=== PATIENT | male | born 1960 | race Two or more races ===

== ENCOUNTER 2021-06-30 12:25 | Outpatient (CLI) | payer OTHER | END 2021-06-30 23:59 | disposition home or self-care (01) | LOC: LAB 12:25 | PROVIDERS: ATTEND Specialist | DX: Z01.812 Encounter for preprocedural laboratory examination (principal); Z20.822 Contact with and (suspected) exposure to COVID-19 | CPT/HCPCS: C9803; U0003 ==

== ENCOUNTER 2021-10-24 09:14 | Outpatient (CLI) | payer OTHER ==
[2021-10-29] MEDS ORDERED: BISA10SU61 RC (16:06)
[2021-10-29] MEDS ORDERED: HYDR-3980 PO (16:06)
[2021-10-29] MEDS ORDERED: MAG30ORA PO (16:06)
[2021-10-29] MEDS ORDERED: SENN-175 PO (16:06)
[2021-10-29] MEDS ORDERED: CLON0.1T PO (16:06)
[2021-10-29] MEDS ORDERED: Menthol/Cetylpyrd (Cepacol) PO (16:06)
[2021-10-29] MEDS ORDERED: RIVA10TA PO (16:06)
[2021-10-29] MEDS ORDERED: FAMO20TA80 PO (16:06)
[2021-10-29] MEDS ORDERED: DOCU100C36 PO (16:06)
[2021-10-29] MEDS ORDERED: INSU100V28 SQ (16:06)
[2021-10-29] MEDS ORDERED: MAGN400O6 PO (16:06)
[2021-10-29] MEDS ORDERED: DIPH25CA49 PO (16:06)
== END 2021-10-24 23:59 | disposition home or self-care (01) ==
LOC: LAB 09:14
PROVIDERS: ATTEND Specialist
DX: Z01.812 Encounter for preprocedural laboratory examination (principal); Z20.822 Contact with and (suspected) exposure to COVID-19
CPT/HCPCS: U0003; C9803

== ENCOUNTER 2021-10-28 07:09 | Inpatient (IN) | payer OTHER ==
[~2021-10-28] VITALS: Ht 170.2 cm; Wt 65.8 kg
[2021-10-28] MEDS ORDERED: BUPIVACAINE 0.5 % PF 150 MG/30 ML VIAL ONE (07:45)
--- NOTE | 2021-10-28 08:00 | NUR ---
MS RN RECEIVED A NEW ADMISSION FROM ADMITTING, PATIENT IS HERE FOR RIGHT HIP ARTHROPLASTY, AWAKE,ALERT,ORIENTED X4,NOT IN ANY FORM OF DISTRESS, RESPIRATIONS EVEN AND UNLABORED,NO SOB NOTED, LUNGS ARE CLEAR,ABDOMEN SOFT,POSITIVE BOWEL SOUNDS,DENIES PAIN AT THIS TIME,ALL NEEDS ATTENDED.
[2021-10-28 10:59] VITALS: BP 132/74
[2021-10-28] MEDS ORDERED: CLONIDINE HCL 0.1 MG TABLET PO PRN (11:00)
[2021-10-28] MEDS ORDERED: MAGNESIUM HYDROXIDE 30 ML UDC PO PRN (11:00)
[2021-10-28] MEDS ORDERED: MENTHOL/CETYLPYRD (CEPACOL) 1 LOZ LOZENGE PO PRN (11:00)
[2021-10-28] MEDS ORDERED: diphenhydrAMINE HCL 25 MG CAPSULE PO PRN (11:00)
[2021-10-28] MEDS ORDERED: ONDANSETRON HCL/PF 4 MG/2 ML VIAL IV PRN ×2 (11:00→15:00)
--- NOTE | 2021-10-28 11:00 | NUR ---
MS RN PATIENT WENT DOWN FOR THE PROCEDURE,ALL NEEDS ATTENDED.
[2021-10-28] MEDS ORDERED: FAMOTIDINE/PF INJ 20 MG/2 ML VIAL IV ONE (11:38)
[2021-10-28] MEDS ORDERED: FENTANYL PF 250MCG/5ML AMPUL ONE (11:38)
[2021-10-28] MEDS ORDERED: SUCCINYLCHOLINE CHLORIDE 20 MG/ML VIAL ONE (11:38)
[2021-10-28] MEDS ORDERED: ROCURONIUM BROMIDE 50 MG/5 ML ONE (11:48)
[2021-10-28] MEDS ORDERED: TRANEXAMIC ACID 3,000 MG in SODIUM CHLORIDE IRRIG SOLUTION 70 ML IR ONE (12:30)
[2021-10-28] MEDS ORDERED: HYDROMORPHONE 1 MG/1 ML DISP.SYRIN ONE (13:40)
[2021-10-28] MEDS ORDERED: LABETALOL HCL IV 100MG VIAL ONE (13:46)
[2021-10-28] MEDS ORDERED: HYDROMORPHONE INJ 2 MG/ML DISP.SYRIN ONE (14:07)
[2021-10-28] MEDS ORDERED: hydrALAZINE HCL IV 20 MG VIAL ONE (14:07)
[2021-10-28] MEDS ORDERED: ZOLPIDEM TARTRATE 5 MG TABLET PO PRN (15:00)
[2021-10-28] MEDS ORDERED: BISACODYL SUPP (10 MG) 10 MG/SUPP.RECT SUPP.RECT RC PRN (15:00)
[2021-10-28] MEDS ORDERED: SENNOSIDES 8.6 MG TABLET PO PRN (15:00)
--- NOTE | 2021-10-28 15:00 | NUR ---
RN Receiving Report Received report from OR Nurse, Pts VSS, states pain and discomfort. Blood Sugar 147, Dressing is Clean, dry and intact, provided clear liquids, will advance as tolerated. All safety precautions taken, bed at lowest position, call light and table within reach. Will continue to monitor throughout shift.
[2021-10-28] MEDS: IV LR 1000 ML 1,000 ML IV PRN (15:26)
[2021-10-28] MEDS: HYDROCODONE/APAP 10/325MG TABLET PO PRN ×2 (15:27→20:26)
--- NOTE | 2021-10-28 16:00 | NUR ---
ms rn on bed,no distress noted,all needs attended.
[2021-10-28 16:09] VITALS: BP 133/76
[2021-10-28] MEDS: RIVAROXABAN 10 MG TABLET PO SCH (17:00)
[2021-10-28] MEDS ORDERED: DOCUSATE SODIUM 250 MG CAPSULE PO SCH (17:00)
[2021-10-28 17:24] LABS: BASOPHILS % (AUTO) 0.4 % (0.0-2.0); EOSINOPHILS % (AUTO) 0.5 % (0.0-6.0); HEMATOCRIT 33 % (39-51); HEMOGLOBIN 10.8 g/dL (13.5-17.5); LYMPHOCYTES # (AUTO) 0.4 K/uL (0.8-4.8); LYMPHOCYTES % (AUTO) 4.9 % (20.0-44.0); MEAN CORPUSCULAR HGB CONC 33 g/dl (31.0-36.0); MEAN CORPUSCULAR VOLUME 96 fL (80-96); MONOCYTES # (AUTO) 0.5 K/uL (0.1-1.30); NEUTROPHILS # (AUTO) 6.8 K/uL (1.8-8.9); NEUTROPHILS % (AUTO) 87.2 % (43.0-81.0); PLATELET COUNT (AUTO) 214 K/uL (150-450); RED BLOOD CELL COUNT(AUTO) 3.47 MIL/uL (4.5-6.0); WHITE BLOOD COUNT (AUTO) 7.8 K/uL (4.3-11.0)
[2021-10-28 17:52] LABS: CALCIUM, SERUM 7.3 mg/dL (8.5-10.1); CREATININE 3.8 mg/dL (0.6-1.3); POTASSIUM 4.6 mmol/L (3.5-5.1)
[2021-10-28] MEDS: DOCUSATE SODIUM 100 MG CAPSULE PO SCH (18:46)
--- NOTE | 2021-10-28 18:50 | NUR ---
ms rn on bed, no distress noted.
--- NOTE | 2021-10-28 19:29 | NUR ---
RN OPENING NOTE PATIENT IN BED, AWAKE. PATIENT IS /O X 4 ABLE TO MAKE NEEDS KNOWN. PATIENT IS ON 2 LPM AT THIS TIME, TOLERATING WELL, WILL TITRATE PRN. PATIENT IS COMPLAINING OF R HIP PAIN 10/02 WILL MANAGE PAIN APPROPRIATELY. R HIP SX DRESSING CLEAN, DRY AND INTACT. PATIENT HAS A L HAND IV ACCESS WITH LR AT 100 CC/HR ONGOING. SAFETY MEASURES IN PLACE: BED LOCKED AND IN LOWEST POSITION, CALL LIGHT WITHIN REACH, SIDE RAILS UP, BED ALARM ON. WILL MONITOR PATIENT CLOSELY.
--- NOTE | 2021-10-28 19:30 | NUR ---
GALEN PALOMARES GIVEN FOR PAIN 10/02 ON THE R HIP. WILL REASSESS MED EFFECTIVENESS AT A LATER TIME Addendum: 10/29/21 at 0050 by RIN CARRILLO RN WRONG TIME 2030
[2021-10-28 20:00] VITALS: BP 126/66
[2021-10-28] MEDS: FAMOTIDINE (20 MG) 20 MG TABLET PO SCH (20:26)
[2021-10-28] MEDS ORDERED: DEXTROSE 50%-WATER 50 ML DISP.SYRIN IV PRN (21:00)
[2021-10-28] MEDS: BLOOD SUGAR DIAGNOSTIC 1 EACH STRIP IN SCH (21:21)
[2021-10-28] MEDS: INSULIN REGULAR, HUMAN 100 UNIT/ML 3 ML VIAL SQ PRN (21:25)
--- NOTE | 2021-10-28 21:30 | NUR ---
RN NOTE MD ORDERED ACCUCHECK AND MILD SS FOR PATIENT. PATIENT'S BS 218 MG/DL, 4 UNITS COVERAGE GIVEN. PATIENT GIVEN SNACKS AND JUICE. WILL MONITOR PATIENT FOR HYPO/HYPERGLYCEMIA.
[2021-10-29] MEDS: IV LR 1000 ML 1,000 ML IV PRN ×2 (01:12→18:00)
--- NOTE | 2021-10-29 01:23 | NUR ---
ms rn was seen by Maria Eugenia vitale, was reminded to do med recon.
[2021-10-29] MEDS: HYDROCODONE/APAP 10/325MG TABLET PO PRN ×4 (01:25→20:10)
--- NOTE | 2021-10-29 01:25 | NUR ---
RN NOTE PATIENT GIVEN NORCO 10-325 FOR PAIN ON THE R HIP. ICE PACK APPLIED WELL.
--- NOTE | 2021-10-29 01:30 | NUR ---
RN NOTE ASKED PATIENT IF HE HAS URINATED SINCE HIS PROCEDURE, HE STATES HE HAS NOT AND THE LAST TIME WAS RIGHT BEFORE THE PROCEDURE. PATIENT REFUSING BLADDER SCAN AT THIS TIME AND STATES TO GIVE HIM TIME AND HE WILL TRY TO URINATE.
--- NOTE | 2021-10-29 03:30 | NUR ---
RN NOTE PATIENT STILL HAS NOT URINATED. PT AGREED TO HAVE BLADDER SCAN DONE.
--- NOTE | 2021-10-29 04:00 | NUR ---
BLADDER SCAN SHOWED 728 ML VOLUME. MD ORDERED TO HAVE LEES CATH INSERTED.
--- NOTE | 2021-10-29 04:18 | NUR ---
LEES CATH 16FR ISERTED FOR URINARY RETENTION.
[2021-10-29] MEDS: BLOOD SUGAR DIAGNOSTIC 1 EACH STRIP IN SCH ×4 (06:32→22:28)
--- NOTE | 2021-10-29 06:56 | NUR ---
RN CLOSING NOTE PATIENT IN BED, EYES CLOSED. PATIENT IS /O X 4 ABLE TO MAKE NEEDS KNOWN. PATIENT IS NOW ON RA, TOLERATING WELL. PAIN MANAGED WITH NORCO 10-325. R HIP SX DRESSING CLEAN, DRY AND INTACT. PATIENT HAS A L HAND IV ACCESS WITH LR AT 100 CC/HR ONGOING. SAFETY MEASURES IN PLACE: BED LOCKED AND IN LOWEST POSITION, CALL LIGHT WITHIN REACH, SIDE RAILS UP, BED ALARM ON. ALL NEEDS MET AND ATTENDED. ALL ORDERS CARRIED OUT. WILL ENDORSE TO DAY SHIFT NURSE FOR VERNELL.
--- NOTE | 2021-10-29 07:15 | NUR ---
ms rn received on bed,awake,alert,oriented x4,s/p right hip surgery,sx site w/ dressing dry and intact,denies pain at this time,all needs attended.
[2021-10-29] MEDS: DOCUSATE SODIUM 100 MG CAPSULE PO SCH ×2 (08:54→16:56)
--- NOTE | 2021-10-29 09:30 | NUR ---
ms teresa breakfast served,due meds given,tolerated well.
[2021-10-29] MEDS: HYDROMORPHONE 1 MG/1 ML DISP.SYRIN IM/IV/SC PRN ×3 (11:40→22:23)
--- NOTE | 2021-10-29 11:45 | NUR ---
ms rn was seen by pt, get up for a little bit.
[2021-10-29 12:39] LABS: ALBUMIN 3.4 g/dL (3.4-5.0); BILIRUBIN,TOTAL 0.5 mg/dL (0.2-1.0); CALCIUM, SERUM 7.1 mg/dL (8.5-10.1); CREATININE 3.6 mg/dL (0.6-1.3); MAGNESIUM 2.3 mg/dL (1.8-2.4); PHOSPHORUS 4.2 mg/dL (2.5-4.9); POTASSIUM 5.4 mmol/L (3.5-5.1); TOTAL PROTEIN, SERUM 6.7 g/dL (6.4-8.2)
[2021-10-29] MEDS ORDERED: CYAN-51 PO (13:06)
[2021-10-29] MEDS ORDERED: GABA-532 PO (13:06)
[2021-10-29] MEDS ORDERED: HYDR-4077 PO (13:06)
[2021-10-29] MEDS ORDERED: FURO-145 PO (13:06)
[2021-10-29] MEDS ORDERED: ATOR20TA PO (13:06)
[2021-10-29] MEDS ORDERED: CALC0.253 PO (13:06)
[2021-10-29] MEDS ORDERED: AMLO-212 PO (13:06)
[2021-10-29] MEDS ORDERED: METO50TA16 PO (13:06)
[2021-10-29] MEDS ORDERED: TERA2CAP4 PO (13:06)
[2021-10-29 13:09] LABS: THYROID STIMULATING HORMONE 1.053 uIU/mL (0.358-3.74)
[2021-10-29 13:28] LABS: BASOPHILS # (AUTO) 0.1 K/uL (0.0-0.2); BASOPHILS % (AUTO) 0.5 % (0.0-2.0); EOSINOPHILS % (AUTO) 0.4 % (0.0-6.0); HEMATOCRIT 33 % (39-51); HEMOGLOBIN 10.6 g/dL (13.5-17.5); LYMPHOCYTES # (AUTO) 0.9 K/uL (0.8-4.8); LYMPHOCYTES % (AUTO) 9.5 % (20.0-44.0); MEAN CORPUSCULAR HGB CONC 33 g/dl (31.0-36.0); MEAN CORPUSCULAR VOLUME 97 fL (80-96); MONOCYTES # (AUTO) 0.6 K/uL (0.1-1.30); MONOCYTES % (AUTO) 6.5 % (2.0-12.0); NEUTROPHILS # (AUTO) 8.3 K/uL (1.8-8.9); NEUTROPHILS % (AUTO) 83.1 % (43.0-81.0); PLATELET COUNT (AUTO) 151 K/uL (150-450); RED BLOOD CELL COUNT(AUTO) 3.35 MIL/uL (4.5-6.0); WHITE BLOOD COUNT (AUTO) 9.9 K/uL (4.3-11.0)
--- NOTE | 2021-10-29 15:30 | NUR ---
ms rn texted briseida again to do med recon,was told that patient will be discharge,.
[2021-10-29] MEDS ORDERED: Menthol/Cetylpyrd (Cepacol) PO (16:06)
[2021-10-29] MEDS ORDERED: SENN-175 PO (16:06)
[2021-10-29] MEDS ORDERED: HYDR-3980 PO (16:06)
[2021-10-29] MEDS ORDERED: MAGN400O6 PO (16:06)
[2021-10-29] MEDS ORDERED: MAG30ORA PO (16:06)
[2021-10-29] MEDS ORDERED: FAMO20TA80 PO (16:06)
[2021-10-29] MEDS ORDERED: BISA10SU61 RC (16:06)
[2021-10-29] MEDS ORDERED: DOCU100C36 PO (16:06)
[2021-10-29] MEDS ORDERED: CLON0.1T PO (16:06)
[2021-10-29] MEDS ORDERED: DIPH25CA49 PO (16:06)
[2021-10-29] MEDS ORDERED: RIVA10TA PO (16:06)
[2021-10-29] MEDS ORDERED: INSU100V28 SQ (16:06)
[2021-10-29] MEDS: RIVAROXABAN 10 MG TABLET PO SCH (16:57)
--- NOTE | 2021-10-29 18:00 | NUR ---
ms rn on bed, no distress noted ,all needs attended,pt is fress of pain.
--- NOTE | 2021-10-29 19:30 | NUR ---
MS RN OPENING NOTE RECEIVED PATIENT IN BED, A/OX4, NO S/S OF APPARENT DISTRESS,C/O 10/02 PAIN-- WILL MEDICATE. R. HIP DRESSING NOTED TO BE CLEAN, DRY, AND INTACT WITH ABDUCTION PILLOW IN PLACE. LEES CATHETER NOTED IN PLACE DRAINING CLEAR, YELLOW URINE. IV LR RUNNING @00MLS/HR. SAFETY IN PLACE. WILL CONTINUE WITH PLAN OF CARE FOR PATIENT.
[2021-10-29 20:00] VITALS: BP 168/88
[2021-10-29 20:40] VITALS: BP 148/86
--- NOTE | 2021-10-29 20:41 | NUR ---
MS RN NOTE- BP RECHECK 148/86 HR- 93 WILL CONTINUE TO MONITOR.
[2021-10-29] MEDS: FAMOTIDINE (20 MG) 20 MG TABLET PO SCH (21:48)
[2021-10-29] MEDS: INSULIN REGULAR, HUMAN 100 UNIT/ML 3 ML VIAL SQ PRN (22:35)
[2021-10-30] MEDS: MAG HYDROX/AL HYDROX/SIMETH 30 ML UDC PO PRN (01:59)
--- NOTE | 2021-10-30 02:10 | NUR ---
MS RN NOTE PATIENT ABDOMEN NOTED TO BE DISTENDED AND HARD, AND HAVING A LOT OF GAS.. GIVEN MAALOX ORDERED. WILL CONTINUE TO MONITOR.
--- NOTE | 2021-10-30 03:27 | NUR ---
MS RN NOTE PATIENT HAVE 1 LARGE BM, STOMACH DISTENTION RELIEVED. SOFT TO TOUCH WHEN PALPATED.
--- NOTE | 2021-10-30 03:28 | NUR ---
MRSA SWAB OBTAINED AT THIS TIME.
[2021-10-30] MEDS: HYDROMORPHONE 1 MG/1 ML DISP.SYRIN IM/IV/SC PRN ×3 (03:35→18:46)
[2021-10-30 06:32] LABS: BASOPHILS % (AUTO) 0.2 % (0.0-2.0); EOSINOPHILS % (AUTO) 0.7 % (0.0-6.0); HEMATOCRIT 32 % (39-51); HEMOGLOBIN 10.6 g/dL (13.5-17.5); LYMPHOCYTES # (AUTO) 0.6 K/uL (0.8-4.8); LYMPHOCYTES % (AUTO) 6.1 % (20.0-44.0); MEAN CORPUSCULAR HGB CONC 33 g/dl (31.0-36.0); MEAN CORPUSCULAR VOLUME 95 fL (80-96); MONOCYTES # (AUTO) 0.7 K/uL (0.1-1.30); MONOCYTES % (AUTO) 7.8 % (2.0-12.0); NEUTROPHILS % (AUTO) 85.2 % (43.0-81.0); PLATELET COUNT (AUTO) 180 K/uL (150-450); RED BLOOD CELL COUNT(AUTO) 3.37 MIL/uL (4.5-6.0); WHITE BLOOD COUNT (AUTO) 9.4 K/uL (4.3-11.0)
[2021-10-30] MEDS: INSULIN REGULAR, HUMAN 100 UNIT/ML 3 ML VIAL SQ PRN ×4 (07:01→22:08)
[2021-10-30] MEDS: BLOOD SUGAR DIAGNOSTIC 1 EACH STRIP IN SCH ×4 (07:01→21:55)
[2021-10-30 07:08] LABS: CREATININE 3.6 mg/dL (0.6-1.3); MAGNESIUM 2.2 mg/dL (1.8-2.4); PHOSPHORUS 3.8 mg/dL (2.5-4.9); POTASSIUM 5.3 mmol/L (3.5-5.1)
--- NOTE | 2021-10-30 07:26 | NUR ---
MS RN CLOSING NOTE NEEDS ATTENDED. REPORT GIVEN TO ERI FOR CONTINUITY OF CARE.
--- NOTE | 2021-10-30 07:29 | NUR ---
MS RN OPENING NOTE RECEIVED PT AWAKE IN BED. A/O X4, ABLE TO MAKE NEEDS KNOWN. ON RA, TOLERATING WELL. NO SOB NOTED. NOT IN ANY SIGN OF RESPIRATORY DISTRESS. IV ACCESS IN L HAND G #20 INTACT AND PATENT. SAFETY MEASURES IN PLACE: BED IN LOWEST AND LOCKED POSITION, SIDE RAILS UPX2, CALL LIGHT WITHIN REACH. WILL CONTINUE TO MONITOR PT.
[2021-10-30] MEDS: DOCUSATE SODIUM 100 MG CAPSULE PO SCH ×2 (08:34→17:20)
--- NOTE | 2021-10-30 10:20 | NUR ---
RN NOTE PT C/O RIGHT HIP PAIN WITH PAIN SCALE LEVEL OF 8/10. DILAUDID 0.5MG IVP ADMINISTERED ORDERED PRN. WASTE WAS WITNESSED BY GALEN GODOY. WILL CONTINUE TO MONITOR AND REASSESSED PT.
[2021-10-30] MEDS ORDERED: TAMSULOSIN 0.4 MG CAP.SR.24H PO ONE (10:40)
[2021-10-30] MEDS ORDERED: BETHANECHOL CHLORIDE (25 MG) 25 MG TABLET PO ONE (11:00)
[2021-10-30] MEDS: RIVAROXABAN 10 MG TABLET PO SCH (17:20)
--- NOTE | 2021-10-30 18:48 | NUR ---
RN NOTE PT C/O RIGHT HIP PAIN WITH PAIN SCALE LEVEL OF 8/10. DILAUDID 0.5MG IVP ADMINISTERED ORDERED PRN. WASTE WAS WITNESSED BY GALEN ENG. WILL CONTINUE TO MONITOR AND REASSESSED PT.
--- NOTE | 2021-10-30 19:27 | NUR ---
MS RN CLOSING NOTE PT AWAKE IN BED. A/O X4, ABLE TO MAKE NEEDS KNOWN. ON RA, TOLERATING WELL. NO SOB NOTED. NOT IN ANY SIGN OF RESPIRATORY DISTRESS. IV ACCESS IN L HAND G #20 INTACT AND PATENT. ALL NEEDS ATTENDED. KEPT CLEAN AND COMFORTABLE. SAFETY MEASURES IN PLACE: BED IN LOWEST AND LOCKED POSITION, SIDE RAILS UPX2, CALL LIGHT WITHIN REACH. ENDORSED TO SUPERVISOR RIPRAP PLACING NURSE FOR VERNELL.
--- NOTE | 2021-10-30 19:30 | NUR ---
MS RN OPENING NOTE RECEIVED PATIENT IN BED, A/OX3, NO S/S OF APPARENT DISTRESS, PAIN OF 10/02-- RENEWED ICE CHIPS FOR NOW, WILL MEDICATE. R. HIP DRESSING NOTED TO BE CLEAN, DRY, AND INTACT WITH ABDUCTION PILLOW IN PLACE. NO IV FLUIDS RUNNING AT THIS TIME, NO MORE LEES CATHETER IN PLACE. SAFETY IN PLACE. RE-ORIENTED AND ENCOURAGED WITH THE USE OF CALL LIGHT WILL CONTINUE WITH PLAN OF CARE FOR PATIENT.
[2021-10-30] MEDS: HYDROCODONE/APAP 10/325MG TABLET PO PRN (19:56)
[2021-10-30 20:00] VITALS: BP_SYST 148; BP_SYST 151; BP_DIAS 86; BP_DIAS 91
[2021-10-30] MEDS: FAMOTIDINE (20 MG) 20 MG TABLET PO SCH (21:48)
[2021-10-31] MEDS: HYDROMORPHONE 1 MG/1 ML DISP.SYRIN IM/IV/SC PRN ×7 (00:21→23:47)
[2021-10-31] MEDS: BLOOD SUGAR DIAGNOSTIC 1 EACH STRIP IN SCH ×4 (06:44→22:44)
[2021-10-31] MEDS: INSULIN REGULAR, HUMAN 100 UNIT/ML 3 ML VIAL SQ PRN (06:45)
--- NOTE | 2021-10-31 07:30 | NUR ---
MS RN OPENING NOTE RECEIVED PATIENT IN BED, A/OX3, NO S/S OF SOB AND ACUTE DISTRESS AT THE MOMENT, ON RA TOLERATING WELL. C/O PAIN OF 7/10 WILL GIVE PRN PAIN MED PER ORDER. R. HIP DRESSING NOTED, CLEAN, DRY, AND INTACT WITH ABDUCTION PILLOW IN PLACE. IV ACCESS L HAND #20, PATENT, SL, NO FLUIDS RUNNING AT THIS TIME. SAFETY IN PLACE: HOB ELEVATED, LOCKED AT LOWEST POSITION, URINAL, CALL LIGHT AND TABLE WITHIN REACH, WILL CONT TO MONITOR.
--- NOTE | 2021-10-31 07:32 | NUR ---
MS RN NOTE CLOSING NEEDS ATTENDED. ENDORSED TO GALEN EVERETT FOR CONTINUITY OF CARE.
[2021-10-31] MEDS: TAMSULOSIN 0.4 MG CAP.SR.24H PO SCH (08:20)
[2021-10-31] MEDS: DOCUSATE SODIUM 100 MG CAPSULE PO SCH ×2 (08:22→17:00)
[2021-10-31 08:25] VITALS: BP 173/89
[2021-10-31] MEDS: RIVAROXABAN 10 MG TABLET PO SCH (17:07)
[2021-10-31] MEDS ORDERED: ACETAMINOPHEN ES 500 MG TABLET PO PRN (19:30)
--- NOTE | 2021-10-31 19:45 | NUR ---
MS/RN OPENING NOTE RECEIVED PATIENT RESTING IN BED. AWAKE, ALERT AND ORIENTED X 3. ABLE TO MAKE NEEDS KNOWN. DENIES PAIN AT THIS TIME. CONTINUES ON ROOM AIR WITH NO S/SX OF RESPIRATORY DISTRESS NOTED. IV ACCESS TO LEFT HAND #22G INTACT, PATENT AND SALINE LOCKED. DRESSING TO RIGHT HIP SURGICAL INCISION C/D/I. ABDUCTOR PILLOW IN PLACE. WBAT TO RLE. CONTINUES ON CCHO PUREED DIET WITH NO S/SX OF ASPIRATION NOTED. CALL LIGHT WITHIN REACH. ASPIRATION, FALL AND SAFETY PRECAUTIONS MAINTAINED. ALL NEEDS ATTENDED TO AT THIS TIME.
--- NOTE | 2021-10-31 19:49 | NUR ---
MS RN OPENING NOTE RECEIVED PATIENT IN BED, A/OX3, NO S/S OF SOB AND ACUTE DISTRESS AT THE MOMENT, ON RA TOLERATING WELL. R. HIP DRESSING NOTED, CLEAN, DRY, AND INTACT WITH ABDUCTION PILLOW IN PLACE. IV ACCESS L HAND #20, PATENT, SL, NO FLUIDS RUNNING AT THIS TIME, DUE MEDS GIVEN; SAFETY IN PLACE: HOB ELEVATED, LOCKED AT LOWEST POSITION, URINAL, CALL LIGHT AND TABLE WITHIN REACH, ENDORSED TO PM SHIFT. Addendum: 10/31/21 at 1951 by MARGUERITE CERDA RN RN CLOSING NOTES:
[2021-10-31 20:00] VITALS: BP 189/82
[2021-10-31] MEDS ORDERED: ACETAMINOPHEN 325 MG TABLET PO PRN (20:00)
[2021-10-31] MEDS: FAMOTIDINE (20 MG) 20 MG TABLET PO SCH (20:15)
[2021-10-31] MEDS ORDERED: SODIUM POLYSTYRENE SULF. PWD 15 GM UDC PO ONE (21:30)
[2021-10-31] MEDS: CLONIDINE HCL 0.1 MG TABLET PO SCH (22:44)
[2021-10-31] MEDS ORDERED: SODIUM POLYSTYRENE SULFONATE 15 G/60 ML BOTTLE ONE (23:06)
[2021-11-01] MEDS: HYDROMORPHONE 1 MG/1 ML DISP.SYRIN IM/IV/SC PRN ×4 (03:05→22:24)
[2021-11-01] MEDS: CLONIDINE HCL 0.1 MG TABLET PO SCH ×3 (05:09→21:40)
--- NOTE | 2021-11-01 06:10 | NUR ---
MS/RN CLOSING NOTE PATIENT CURRENTLY SLEEPING IN BED. ALERT AND ORIENTED X 3. ABLE TO MAKE NEEDS KNOWN. DENIES PAIN AT THIS TIME. CONTINUES ON ROOM AIR WITH NO S/SX OF RESPIRATORY DISTRESS NOTED. IV ACCESS TO LEFT HAND #22G INTACT, PATENT AND SALINE LOCKED. DRESSING TO RIGHT HIP SURGICAL INCISION C/D/I. ABDUCTOR PILLOW IN PLACE. WBAT TO RLE. CONTINUES ON CCHO PUREED DIET WITH NO S/SX OF ASPIRATION NOTED. CALL LIGHT WITHIN REACH. ASPIRATION, FALL AND SAFETY PRECAUTIONS MAINTAINED. WILL ENDORSE PLAN OF CARE TO ONCOMING SHIFT RN.
[2021-11-01] MEDS: BLOOD SUGAR DIAGNOSTIC 1 EACH STRIP IN SCH ×4 (06:26→22:23)
--- NOTE | 2021-11-01 07:30 | NUR ---
MS/RN OPENING NOTE RECEIVED PATIENT RESTING IN BED. AWAKE, ALERT AND ORIENTED X 3. ABLE TO MAKE NEEDS KNOWN. DENIES PAIN AT THIS TIME. CONTINUES ON ROOM AIR WITH NO S/SX OF RESPIRATORY DISTRESS NOTED. IV ACCESS LEFT HAND #22G INTACT, PATENT AND SALINE LOCKED. DRESSING TO RIGHT HIP SURGICAL INCISION C/D/I. ABDUCTOR PILLOW IN PLACE. CONTINUES ON CCHO PUREED DIET WITH NO S/SX OF ASPIRATION NOTED. CALL LIGHT, TABLE AND URINAL WITHIN REACH. ASPIRATION, FALL AND SAFETY PRECAUTIONS MAINTAINED..
[2021-11-01 08:00] VITALS: BP 149/79
[2021-11-01] MEDS: DOCUSATE SODIUM 100 MG CAPSULE PO SCH ×2 (09:00→17:00)
[2021-11-01] MEDS: TAMSULOSIN 0.4 MG CAP.SR.24H PO SCH (10:43)
[2021-11-01] MEDS: FAMOTIDINE (20 MG) 20 MG TABLET PO SCH (10:43)
[2021-11-01] MEDS: INSULIN REGULAR, HUMAN 100 UNIT/ML 3 ML VIAL SQ PRN (12:21)
[2021-11-01 16:27] LABS: CREATININE, URINE 66.4 MG/DL (30.0-125.0)
[2021-11-01 16:31] LABS: BILIRUBIN,URINE NEGATIVE (NEGATIVE); COLOR,URINE YELLOW (YELLOW); LEUKOCYTE ESTERASE ,URINE NEGATIVE (NEGATIVE); NITRITE, URINE NEGATIVE (NEGATIVE); PROTEIN,URINE >=300 mg/dl (NEGATIVE); UGLUCOSE NEGATIVE (NEGATIVE); UROBILINOGEN,URINE 0.2 EU/dL (0.2)
[2021-11-01 16:57] LABS: BACTERIA,URINE Few /HPF (None Seen); SQUAMOUS EPITHELIAL CELL,UR Few /HPF (None Seen); WBC,URINE 0-2 /HPF (0-3)
[2021-11-01] MEDS: RIVAROXABAN 10 MG TABLET PO SCH (18:12)
--- NOTE | 2021-11-01 19:25 | NUR ---
MS RN OPENING NOTE RECEIVED PATIENT RESTING IN BED; AWAKE, ALERT AND ORIENTED X3. BREATHING EVENLY AND UNLABORED. ON ROOM AIR; TOLERATING WELL. NOT IN ANY FORM OF RESPIRATORY DISTRESS. WITH IV ACCESS OF LEFT HAND G#20; PATENT, INTACT AND SALINE LOCKED. WITH DRESSING ON RIGHT HIP SURGICAL INCISION; C/D/I. ABDUCTOR PILLOW IN PLACE. NEEDS ANTICIPATED AND ATTENDED TO. SAFETY MEASURES IMPLEMENTED: CALL LIGHT AND TABLE WITHIN REACH, SIDE RAILS UP X2, BED IN LOWEST LOCKED POSITION. WILL CONTINUE TO MONITOR
--- NOTE | 2021-11-01 19:44 | NUR ---
MS RN CLOSING NOTES: PATIENT RESTING IN BED. AWAKE, ALERT AND ORIENTED X 3. ABLE TO MAKE NEEDS KNOWN. DENIES PAIN AT THIS TIME. CONTINUES ON ROOM AIR WITH NO S/SX OF RESPIRATORY DISTRESS NOTED. IV ACCESS LEFT HAND #22G INTACT, PATENT AND SALINE LOCKED. DRESSING TO RIGHT HIP SURGICAL INCISION C/D/I. ABDUCTOR PILLOW IN PLACE. CONTINUES ON CCHO PUREED DIET WITH NO S/SX OF ASPIRATION NOTED. CALL LIGHT, TABLE AND URINAL WITHIN REACH. ASPIRATION, FALL AND SAFETY PRECAUTIONS MAINTAINED, ENDORSED TO PM SHIFT.
[2021-11-01 20:00] VITALS: BP 151/79
[2021-11-01 20:08] VITALS: BP 151/71
--- NOTE | 2021-11-01 22:24 | NUR ---
RN NOTE PATIENT C/O RIGHT GROIN PAIN 11/02; PRN HYDROMORPHONE 0.5 ML GIVEN IVP ORDERED; WILL CONTINUE TO MONITOR AND REASSESS PT.
[2021-11-02] MEDS: HYDROMORPHONE 1 MG/1 ML DISP.SYRIN IM/IV/SC PRN ×5 (02:22→18:24)
--- NOTE | 2021-11-02 02:22 | NUR ---
RN NOTE PATIENT C/O RIGHT GROIN PAIN 11/02; PRN HYDROMORPHONE 0.5 ML GIVEN IVP ORDERED; WILL CONTINUE TO MONITOR AND REASSESS PT.
[2021-11-02] MEDS: MAG HYDROX/AL HYDROX/SIMETH 30 ML UDC PO PRN (04:21)
[2021-11-02] MEDS: CLONIDINE HCL 0.1 MG TABLET PO SCH ×3 (04:33→20:52)
[2021-11-02] MEDS: BLOOD SUGAR DIAGNOSTIC 1 EACH STRIP IN SCH ×4 (05:49→21:43)
--- NOTE | 2021-11-02 06:59 | NUR ---
MS RN CLOSING NOTE PATIENT REMAINS IN BED AWAKE. A/O X3. ABLE TO MAKE NEEDS KNOWN. STABLE ON ROOM AIR. NO S/S OF RESPIRATORY DISTRESS. IV SITE ON LEFT HAND G#20; PATENT, INTACT AND SALINE LOCKED. SAFETY MEASURES MAINTAINED: CALL LIGHT AND TABLE WITHIN EASY REACH, SIDE RAILS UP X2, BED IN LOWEST LOCKED POSITION. ENDORSED TO MORNING SHIFT FOR VERNELL.
--- NOTE | 2021-11-02 07:15 | NUR ---
RN OPENING NOTES RECEIVED PATIENT IN BED AWAKE. A/O X3. VERBALLY RESPONSIVE AND ABLE TO MAKE NEEDS KNOWN. STABLE ON ROOM AIR. NO S/SX OF RESPIRATORY DISTRESS. NOTED WITH IV ACCESS ON LEFT HAND G#20, PATENT, INTACT AND SALINE LOCKED. SAFETY MEASURES IN PLACEM, BED IN LOWEST LOCKED POSITION, CALL LIGHT AND TABLE WITHIN EASY REACH, SIDE RAILS UP X2. WILL CONTINUE TO MONITOR PATIENT.
[2021-11-02 08:14] VITALS: BP 180/66
[2021-11-02] MEDS: TAMSULOSIN 0.4 MG CAP.SR.24H PO SCH (08:49)
[2021-11-02] MEDS: DOCUSATE SODIUM 100 MG CAPSULE PO SCH ×3 (08:51→16:09)
[2021-11-02] MEDS: INSULIN REGULAR, HUMAN 100 UNIT/ML 3 ML VIAL SQ PRN ×2 (11:28→17:09)
[2021-11-02 16:04] VITALS: BP 146/89
[2021-11-02] MEDS: RIVAROXABAN 10 MG TABLET PO SCH (16:10)
[2021-11-02] MEDS: HYDROCODONE/APAP 10/325MG TABLET PO PRN ×2 (17:46→21:38)
--- NOTE | 2021-11-02 18:55 | NUR ---
RN CLOSING NOTES PATIENT IN BED AWAKE. A/O X3. VERBALLY RESPONSIVE AND ABLE TO MAKE NEEDS KNOWN. WITH IV ACCESS ON LEFT HAND G#20, PATENT, INTACT AND SALINE LOCKED. ALL DUE MEDS GIVEN, TOLERATED WELL. PAIN MEDS GIVEN NEEDED. SAFETY MEASURES IN PLACE, BED IN LOWEST LOCKED POSITION, CALL LIGHT AND TABLE WITHIN EASY REACH, SIDE RAILS UP X2. WILL ENDORSE TO NEXT SHIFT FOR CONTINUITY OF CARE.
--- NOTE | 2021-11-02 19:21 | NUR ---
MS RN OPENING NOTE RECEIVED PATIENT AWAKE IN BED. A/O X3 AND ABLE TO MAKE NEEDS KNOWN. PT STABLE ON ROOM AIR. NO SOB OR S/S OF RESPIRATORY DISTRESS. IV ACCESS LEFT HAND G#20 SL, INTACT AND PATENT. SAFETY PRECAUTIONS IN PLACE. BED IN LOWEST LOCKED POSITION, HOB ELEVATED, SIDE RAILS UP X2, AND CALL LIGHT AND TABLE WITHIN REACH. ALL NEEDS MET AT THIS TIME.
[2021-11-02 20:00] VITALS: BP 168/89
[2021-11-02] MEDS: FAMOTIDINE (20 MG) 20 MG TABLET PO SCH (20:51)
--- NOTE | 2021-11-02 21:38 | NUR ---
RN NOTE PT COMPLAINED OF PAIN 10/02 OF R HIP. ADMINISTERED NORCO 10-325 MG FOR MODERATE PAIN ORDERED. MADE COMFORTABLE IN BED. ALL NEEDS MET AT THIS TIME.
[2021-11-02 23:40] LABS: BASOPHILS % (AUTO) 0.3 % (0.0-2.0); EOSINOPHILS % (AUTO) 1.1 % (0.0-6.0); HEMATOCRIT 30 % (39-51); LYMPHOCYTES # (AUTO) 0.4 K/uL (0.8-4.8); LYMPHOCYTES % (AUTO) 6.4 % (20.0-44.0); MEAN CORPUSCULAR HGB CONC 34 g/dl (31.0-36.0); MEAN CORPUSCULAR VOLUME 92 fL (80-96); MONOCYTES # (AUTO) 0.9 K/uL (0.1-1.30); MONOCYTES % (AUTO) 12.3 % (2.0-12.0); NEUTROPHILS # (AUTO) 5.6 K/uL (1.8-8.9); NEUTROPHILS % (AUTO) 79.9 % (43.0-81.0); PLATELET COUNT (AUTO) 153 K/uL (150-450); RED BLOOD CELL COUNT(AUTO) 3.22 MIL/uL (4.5-6.0)
[2021-11-02 23:49] LABS: CALCIUM, SERUM 6.9 mg/dL (8.5-10.1); CREATININE 3.4 mg/dL (0.6-1.3); POTASSIUM 4.8 mmol/L (3.5-5.1)
[2021-11-03] MEDS: HYDROCODONE/APAP 10/325MG TABLET PO PRN ×4 (01:20→20:40)
[2021-11-03] MEDS: CLONIDINE HCL 0.1 MG TABLET PO SCH ×3 (04:48→20:41)
[2021-11-03] MEDS: BLOOD SUGAR DIAGNOSTIC 1 EACH STRIP IN SCH ×3 (06:34→17:35)
--- NOTE | 2021-11-03 06:35 | NUR ---
MS RN CLOSING NOTE PATIENT AWAKE IN BED. A/O X3 AND ABLE TO MAKE NEEDS KNOWN. PT STABLE ON ROOM AIR. NO SOB OR S/S OF RESPIRATORY DISTRESS. IV ACCESS LEFT HAND G#20 SL, INTACT AND PATENT. ALL DUE MEDS GIVEN ORDERED. TURNED AND REPOSITIONED Q2H. SAFETY PRECAUTIONS IN PLACE AT ALL TIMES. BED IN LOWEST LOCKED POSITION, HOB ELEVATED, SIDE RAILS UP X2, AND CALL LIGHT AND TABLE WITHIN REACH. ALL NEEDS MET AT THIS TIME AND WILL ENDORSE TO ONCOMING NURSE FOR VERNELL.
--- NOTE | 2021-11-03 07:30 | NUR ---
MS RN OPENING NOTE PATIENT AWAKE,ALERT AND ORIENTED X4. PATIENT IS ABLE TO MAKE NEEDS KNOWN. PATIENT IS ON ROOM AIR TOLERATING WELL. PATIENT HAS IV ACCESS ON LEFT HAND 20 GUAGE. INTACT AND PATENT.ALL SAFETY MEASURES IN PLACE. BED IN LOWEST POSITION AND LOCKED. HEAD OF BED IS ELEVATED. SIDE RAILS UP X2, CALL LIGHT WITHIN REACH. WILL CONTINUE TO ASSESS THROUGHOUT SHIFT
[2021-11-03 08:00] VITALS: BP_SYST 129; BP_SYST 138; BP_DIAS 66; BP_DIAS 73
[2021-11-03] MEDS: HYDROMORPHONE 1 MG/1 ML DISP.SYRIN IM/IV/SC PRN ×3 (09:05→15:34)
[2021-11-03] MEDS: TAMSULOSIN 0.4 MG CAP.SR.24H PO SCH (09:07)
[2021-11-03] MEDS: DOCUSATE SODIUM 100 MG CAPSULE PO SCH ×2 (09:07→17:25)
--- NOTE | 2021-11-03 09:33 | NUR ---
ms rn note patient complaining of pain 8 on pain scale 0-10. administered Dilaudid. will reassess
--- NOTE | 2021-11-03 11:30 | NUR ---
ms rn note made rounds with md, and suggested to give pain medication. gave dilaudid to pain on 8 from a scale of 0-10
[2021-11-03 16:00] VITALS: BP 138/78
--- NOTE | 2021-11-03 16:30 | NUR ---
ms rn note changed surgical dressing site due to leaking. no signs of infection
[2021-11-03] MEDS: RIVAROXABAN 10 MG TABLET PO SCH (17:26)
--- NOTE | 2021-11-03 19:00 | NUR ---
ms rn note patient was scheduled for discharge, spoke with home health care case manager said workers compensation arranged whole discharge. that transportation will keep him up between 5-6 pm. called transportation and did not hand picker. endorsed to methods examiner nurse to followup
--- NOTE | 2021-11-03 19:30 | NUR ---
ms closing note patient is alert and oriented x4. patient is able to make needs known. patient uses urinal. patient has iv Gauge on left hand. iv intact, patent and flushing well.patient has right surgical incision site. kept clean and dry.all safety measures in place. side rails up x2, call light within, bed locked in lowest position.endorsed to manufacturing supervisor 2nd shift rn
--- NOTE | 2021-11-03 19:55 | NUR ---
MS RN OPENING NOTE RECEIVED PATIENT AWAKE,ALERT AND ORIENTED X4. PATIENT IS ABLE TO MAKE NEEDS KNOWN. PATIENT IS ON ROOM AIR TOLERATING WELL. PATIENT HAS IV ACCESS ON LEFT HAND 20 GUAGE. INTACT AND PATENT.ALL SAFETY MEASURES IN PLACE. BED IN LOWEST POSITION AND LOCKED. HEAD OF BED IS ELEVATED. SIDE RAILS UP X2, CALL LIGHT WITHIN REACH. WILL CONTINUE TO MONITOR.
[2021-11-03 20:41] VITALS: BP 174/81
[2021-11-03] MEDS: FAMOTIDINE (20 MG) 20 MG TABLET PO SCH (20:47)
--- NOTE | 2021-11-03 21:40 | NUR ---
RN NOTES; PT WAS PICKED UP BY AMBULANCE.[id number] ABLE TO VERBALIZE NEEDS.2109=PT WAS COMPLAINED OF PAIN RIGHT HIP 9/10.AND B/P 174/81.PRN NORCO 10/325MG AND CLINIDINE WAS GIVEN.NO SIGN A/R NOTED.IV ACCESS REMOVED AND NAME BAND.SKIN INTACT EXCEPT THE SURGICAL SITE.
== END 2021-11-03 22:45 | DRG 470 ==
LOC: DS 07:09 → MED 07:10
PROVIDERS: ADMIT Registered Nurse; ATTEND Registered Nurse
PROC: 0SR90JZ Replacement of Right Hip Joint with Synthetic Substitute, Open Approach (ICD-10-PCS; principal; 2021-10-28)
DX: M16.11 Unilateral primary osteoarthritis, right hip (principal); E87.0 Hyperosmolality and hypernatremia; I13.0 Hypertensive heart and chronic kidney disease with heart failure and stage 1 through stage 4 chronic kidney disease, or unspecified chronic kidney disease; E87.1 Hypo-osmolality and hyponatremia; N18.9 Chronic kidney disease, unspecified; X58.XXXA Exposure to other specified factors, initial encounter; Y99.0 Civilian activity done for income or pay; I50.9 Heart failure, unspecified; E11.22 Type 2 diabetes mellitus with diabetic chronic kidney disease; D64.9 Anemia, unspecified; Z85.46 Personal history of malignant neoplasm of prostate; E78.5 Hyperlipidemia, unspecified; E88.09 Other disorders of plasma-protein metabolism, not elsewhere classified; E87.5 Hyperkalemia
CPT/HCPCS: 36415; 71045-TC; 76770-TC; 80048-TC; 80053-TC; 81001; 82570-TC; 82962-TC; 83735-TC; 84100-TC; 84300-TC; 84443-TC; 85025-TC; 86850-TC; 87081-TC; 94799-TC; 97116-TC; 97530-TC; A4217; A6209; C1776; G0378; J0330; J0360; J0690; J1170; J1815; J2405; J2704; J2765; J3010; J3490; J7030; J7120; Q0163